=== PATIENT | female | born 1980 | race Caucasian/White ===

== ENCOUNTER 2017-10-20 20:48 | Inpatient (IN) | payer OTHER ==
[~2017-10-20] VITALS: Ht 171 cm; Wt 82.1 kg
[2017-10-20] MEDS ORDERED: OXYGEN THERAPY IH SCH (21:30)
[2017-10-20] MEDS ORDERED: FentaNYL CITRATE-PF 100 MCG/2 ML VIAL IVP PRN (21:30)
[2017-10-20] MEDS ORDERED: METOCLOPRAMIDE HCL 5 MG/ML 2 ML VIAL IVP PRN (21:30)
[2017-10-20] MEDS ORDERED: CITRIC ACID/SODIUM CITRATE 30 ML SOLUTION UDCUP PO PRN (21:30)
[2017-10-20] MEDS ORDERED: OXYTOCIN 30 UNITS/LACT RINGERS 500 ML IV ONE (21:30)
[2017-10-20] MEDS ORDERED: AMPICILLIN SODIUM 2 GM/NS 100 ML IV ONE (21:45)
[2017-10-20] MEDS: RINGERS SOLUTION,LACTATED 1,000 ML IV SCH (22:20)
[2017-10-20 22:29] LABS: BASOPHILS % (AUTO) 0.3 % (0.0-2.0); HEMATOCRIT 36.3 % (36-46); HEMOGLOBIN 12.4 g/dL (12.0-16.0); LYMPHOCYTES # (AUTO) 1.8 K/uL (1.0-4.8); MEAN CORPUSCULAR HEMOGLOBIN 29.1 pg (26.0-34.0); MEAN CORPUSCULAR HGB CONC 34.1 G/dL (31.0-37.0); MEAN CORPUSCULAR VOLUME 85 fL (80-100); MONOCYTES # (AUTO) 1.3 K/uL (0.1-1.0); MONOCYTES % (AUTO) 11.3 % (2.0-9.0); NEUTROPHILS # (AUTO) 8.5 K/uL (1.8-7.7); NEUTROPHILS % (AUTO) 72.4 % (40.0-70.0); PLATELET COUNT (AUTO)-OB 226 K/uL (150-450); RED BLOOD CELL COUNT(AUTO) 4.25 MIL/uL (4.00-5.20); RED CELL DISTRIBUTION WIDTH 15.2 % (11.5-14.5)
[2017-10-20] MEDS ORDERED: PREN1TAB89 PO (22:38)
[2017-10-20] MEDS: RINGERS SOLUTION,LACTATED 1,000 ML IV PRN ×2 (22:48→23:02)
[2017-10-20] MEDS ORDERED: ROPIVACAINE HCL 0.2% 100 ML ED PRN (22:48)
[2017-10-20] MEDS ORDERED: LIDOCAINE HCL 2%/EPI 1:200,000/PF 20 ML VIAL ONE (22:52)
[2017-10-20] MEDS ORDERED: DiphenhydrAMINE HCL 50 MG/ML VIAL IVP PRN (23:00)
[2017-10-20] MEDS ORDERED: ONDANSETRON HCL 4 MG/2 ML VIAL IVP PRN (23:00)
[2017-10-20] MEDS ORDERED: PROMETHAZINE HCL 25 MG/ML VIAL IM PRN (23:00)
[2017-10-20] MEDS ORDERED: NALBUPHINE HCL 10 MG/ML VIAL IVP PRN (23:00)
[2017-10-21] MEDS: RINGERS SOLUTION,LACTATED 1,000 ML IV SCH ×2 (00:41→06:53)
[2017-10-21 00:44] VITALS: BP 133/76
[2017-10-21] MEDS: AMPICILLIN SODIUM 1 GM/NS 50 ML IV SCH ×3 (03:37→10:52)
[2017-10-21] MEDS ORDERED: ROPIVACAINE HCL 0.2% 100 ML ED ONE (06:45)
[2017-10-21] MEDS ORDERED: OXYTOCIN 30 UNITS/LACT RINGERS 500 ML IV PRN (07:01)
[2017-10-21] MEDS ORDERED: RINGERS SOLUTION,LACTATED 1,000 ML IV ONE (07:49)
[2017-10-21] MEDS ORDERED: LIDOCAINE HCL/PF 1% 30 ML VIAL INJ PRN (08:00)
[2017-10-21] MEDS ORDERED: GLYCERIN/WITCH HAZEL LEAF 40 PADS JAR TP PRN (08:00)
[2017-10-21] MEDS ORDERED: OxyCODONE HCL/ACETAMINOPHEN 5-325 MG TABLET PO PRN (08:00)
[2017-10-21] MEDS ORDERED: SIMETHICONE 80 MG CHEWABLE TABLET CHEW ONE (12:50)
[2017-10-21] MEDS ORDERED: MISOPROSTOL 100 MCG TABLET ONE (13:14)
[2017-10-21] MEDS ORDERED: MISOPROSTOL 100 MCG TABLET PR ONE (13:30)
[2017-10-21] MEDS: OxyCODONE HCL/ACETAMINOPHEN 5-325 MG TABLET PO PRN (15:12)
[2017-10-21] MEDS: IBUPROFEN 600 MG TABLET PO PRN ×2 (15:12→21:44)
[2017-10-21] MEDS: SENNA/DOCUSATE SODIUM 187-50 MG TABLET PO SCH (21:45)
[2017-10-22 06:29] LABS: BASOPHILS % (AUTO) 0.4 % (0.0-2.0); EOSINOPHILS % (AUTO) 0.8 % (1.0-6.0); HEMATOCRIT 26.2 % (36-46); HEMOGLOBIN 8.9 g/dL (12.0-16.0); LYMPHOCYTES # (AUTO) 2.8 K/uL (1.0-4.8); LYMPHOCYTES % (AUTO) 11.8 % (22.0-44.0); MEAN CORPUSCULAR HEMOGLOBIN 29.3 pg (26.0-34.0); MEAN CORPUSCULAR HGB CONC 33.9 G/dL (31.0-37.0); MEAN CORPUSCULAR VOLUME 86 fL (80-100); MONOCYTES # (AUTO) 1.9 K/uL (0.1-1.0); MONOCYTES % (AUTO) 8.2 % (2.0-9.0); NEUTROPHILS # (AUTO) 18.4 K/uL (1.8-7.7); NEUTROPHILS % (AUTO) 78.8 % (40.0-70.0); PLATELET COUNT (AUTO)-OB 175 K/uL (150-450); RED BLOOD CELL COUNT(AUTO) 3.04 MIL/uL (4.00-5.20); RED CELL DISTRIBUTION WIDTH 15.4 % (11.5-14.5)
[2017-10-22] MEDS: IBUPROFEN 600 MG TABLET PO PRN (07:01)
[2017-10-22] MEDS: OxyCODONE HCL/ACETAMINOPHEN 5-325 MG TABLET PO PRN (08:23)
[2017-10-22] MEDS: SENNA/DOCUSATE SODIUM 187-50 MG TABLET PO SCH (08:23)
[2017-10-22] MEDS ORDERED: IBUP-2070 PO (11:16)
[2017-10-22] MEDS ORDERED: DSS100 PO (11:17)
== END 2017-10-22 14:30 | disposition home or self-care (01) | DRG 775 ==
LOC: 4S 20:48 → OBSVTOIN 20:48
PROVIDERS: ADMIT Obstetrics & Gynecology; ATTEND Obstetrics & Gynecology
PROC: 4A1HXCZ Monitoring of Products of Conception, Cardiac Rate, External Approach (ICD-10-PCS; 2017-10-20)
PROC: 10E0XZZ Delivery of Products of Conception, External Approach (ICD-10-PCS; principal; 2017-10-21)
PROC: 0KQM0ZZ Repair Perineum Muscle, Open Approach (ICD-10-PCS; 2017-10-21)
PROC: 3E0R3BZ Introduction of Anesthetic Agent into Spinal Canal, Percutaneous Approach (ICD-10-PCS; 2017-10-21)
PROC: 00HU33Z Insertion of Infusion Device into Spinal Canal, Percutaneous Approach (ICD-10-PCS; 2017-10-21)
DX: O63.0 Prolonged first stage (of labor) (principal); O70.1 Second degree perineal laceration during delivery; Z37.0 Single live birth; O77.0 Labor and delivery complicated by meconium in amniotic fluid; Z3A.39 39 weeks gestation of pregnancy; Z79.899 Other long term (current) drug therapy
CPT/HCPCS: 86762; 86850; 86900; 86901; 87340; J0290; J2590; J2795; J7120